=== PATIENT | male | born 1965 | race Two or more races ===

== ENCOUNTER 2019-02-20 13:34 | Outpatient (CLI) | payer OTHER ==
[~2019-02-20 13:34] MED LIST: ALEIVE PO; BENAZEPRIL HCL40 MG; CRESTOR10 MG; DIOVAN320 MG; DIOVAN40 MG PO; LOTENSIN40 MG PO; NABUMETONE750 MG PO; NIFE60TA3; PROTONIX40 MG PO; VYTORIN 10-40 M1 TAB PO; ZANTAC150 MG PO
== END 2019-02-20 13:48 | disposition home or self-care (01) ==
LOC: RAD 13:34
DX: R31.1 Benign essential microscopic hematuria (principal); N20.0 Calculus of kidney

== ENCOUNTER 2020-12-17 08:31 | Outpatient (CLI) | payer OTHER | END 2020-12-17 08:52 | disposition home or self-care (01) | LOC: TOM 08:31 | PROVIDERS: ATTEND Urology | DX: Q61.01 Congenital single renal cyst (principal); J32.8 Other chronic sinusitis; R31.0 Gross hematuria; N20.0 Calculus of kidney; Q62.11 Congenital occlusion of ureteropelvic junction ==

== ENCOUNTER → 2020-12-17 09:44 | Outpatient (CLI) | payer OTHER | END | disposition home or self-care (01) | LOC: LAB 09:44 | PROVIDERS: ATTEND Radiology Diagnostic Radiology | DX: R31.0 Gross hematuria (principal) ==

== ENCOUNTER 2020-12-18 07:35 | Outpatient (CLI) | payer OTHER | END 2020-12-18 07:47 | disposition home or self-care (01) | LOC: MRI 07:35 | PROVIDERS: ATTEND Urology | DX: R31.0 Gross hematuria (principal); N20.0 Calculus of kidney; Q62.11 Congenital occlusion of ureteropelvic junction | CPT/HCPCS: 74183 ==

== ENCOUNTER 2021-02-02 08:41 | Outpatient (CLI) | payer OTHER | END 2021-02-02 08:50 | disposition home or self-care (01) | LOC: TOM 08:41 | PROVIDERS: ATTEND Urology | DX: K57.90 Diverticulosis of intestine, part unspecified, without perforation or abscess without bleeding (principal); N13.39 Other hydronephrosis ==

== ENCOUNTER 2022-02-07 10:02 | Emergency (ER) | payer OTHER ==
[~2022-02-07] VITALS: Ht 180.3 cm; Wt 90.7 kg
== END 2022-02-07 15:22 | disposition home or self-care (01) ==
LOC: ER 10:02
DX: R10.9 Unspecified abdominal pain (principal)

== ENCOUNTER 2023-06-01 13:57 | Outpatient (CLI) | payer OTHER | END 2023-06-01 14:12 | disposition home or self-care (01) | LOC: SONOGRAMA 13:57 | PROVIDERS: ATTEND Urology | DX: R31.1 Benign essential microscopic hematuria (principal) ==

== ENCOUNTER 2024-11-01 07:38 | Outpatient (CLI) | payer OTHER | END 2024-11-01 07:39 | disposition home or self-care (01) | LOC: NUCLEAR 07:38 | PROVIDERS: ATTEND Internal Medicine | DX: I25.110 Atherosclerotic heart disease of native coronary artery with unstable angina pectoris (principal) ==